=== PATIENT | male | born 1950 ===

== ENCOUNTER 2018-06-04 06:25 | Day surgery (SDC) | payer MEDICARE ==
[2018-04-16 13:34] VITALS: BMI 27.3
--- NOTE | 2018-06-02 03:42 | HP ---
Copied To: Tom Clemens MD Attending MD: Tom Clemens MD REASON FOR ADMISSION: Left heart cath, possible angioplasty because of abnormal stress test. BRIEF CLINICAL HISTORY: This is a 68-year-old male with past medical history significant for coronary artery disease, [place], status post PTCA 2003, hypertension, history of coronary artery bypass surgery 2002, hypertension, hyperlipidemia, history of PTCA of [place] RCA with brachytherapy as grafted with occluded immediate postop who had recently abnormal stress test. The patient is scheduled for elective cardiac cath, possible angioplasty. PAST MEDICAL HISTORY: Significant for hypertension, hyperlipidemia, coronary artery disease, history of coronary artery bypass surgery 2002, three-vessel bypass GARZA to LAD, obtuse marginal saphenous graft to RCA, immediate postop closed occluded venous graft to the RCA. Then, the patient had a PTCA in 2003 of [place] RCA with brachytherapy. Then, the patient has a cardiac catheterization in 2006. At that time, SVG to RCA was patent. RECENT CARDIAC WORKUP: The patient's last cardiac catheterization dated 08/29/2014 was done that shows [place] triple-vessel disease as right side was dominant, left main 40-50% stenosis, LAD has 70% proximal stenosis, which gives collateral circumflex without significant disease, but obtuse marginal was 100% occluded, right coronary artery 100% occluded. Graft GARZA to LAD was patent, SVG to obtuse marginal 1 was patent. SVG to RCA occluded immediate postop and [place] RCA was occluded on 08/29/2014. Medical treatment recommended. At that time, ejection fraction was 45%, EDP was 12. When compared from the previous cath of 2006, the cath from 2012 was similar except occluded RCA, which was patent to the previous cath. The patient had a stress test done dated 04/16/2018 that showed abnormal myocardial perfusion study, slightly reversible in the edge of apical and inferior defect suggestive of periinfarct ischemia, ejection fraction 38% in comparison to the last stress test dated 08/25/2016 the defect appear large and slightly reversible at the edge of the defect. The patient had echocardiography 04/16/2018 that showed normal LV ejection fraction 35%, moderate global hypokinesis, trace aortic regurgitation, mild mitral regurgitation, mild tricuspid regurgitation, RV systolic pressure of 40. CURRENT MEDICATIONS: The patient is taking Crestor 20 mg daily, irbesartan 150 mg daily, aspirin 325 mg daily, nitroglycerin 0.5 p.r.n. and carvedilol 25 p.o. b.i.d. ALLERGIES: NO KNOWN DRUG ALLERGIES. REVIEW OF SYSTEMS: As per HPI. PHYSICAL EXAMINATION VITAL SIGNS: Height of the patient 5 feet 8 inches, weight of the patient 180 pounds, body mass index 27.4 kg/m2. Rest of the examination as follows: Temperature afebrile, heart rate 68, blood pressure 136/98. HEENT: PERRLA. Extraocular muscles intact. NECK: Supple. No carotid bruits or thyromegaly. CHEST: Clear to auscultation. HEART: S1, S2 regular. ABDOMEN: Soft. EXTREMITIES: Clubbing and cyanosis negative. LABORATORY DATA: Blood workup pending. IMPRESSION: A 68-year-old male with past medical history significant for very extensive coronary artery disease, status post coronary artery bypass graft 2002, three vessels, left internal mammary artery to left anterior descending, obtuse marginal saphenous graft to right coronary artery, then right coronary artery immediate postop occluded. The patient had a brachytherapy in 2003 of [place] right coronary artery as saphenous vein graft to right coronary artery occluded. Then, the patient had a cath in 2006 that at that time showed patent left internal mammary artery to left anterior descending, patent saphenous graft to circumflex and patent right coronary artery with brachytherapy. Then, the patient has a repeat catheterization on 08/29/2014. At that time, showed patent left internal mammary artery to left anterior descending, patent saphenous vein graft to obtuse marginal 1, [place] triple vessel disease, occluded right coronary artery. Medical treatment recommended. Now, the patient has abnormal stress test. RECOMMENDATIONS: We will do cardiac catheterization. Further recommendation after the cardiac catheterization. Risks, benefits and alternatives discussed with the patient. The patient agreed. We will proceed for cardiac catheterization. Thank you, Dr. Kennedy, for providing us the opportunity in taking care of the patient, Aftab Sellers. Tom Clemens MD
[2018-06-04 07:12] VITALS: RESP 18; O2SAT 97
[2018-06-04] MEDS ORDERED: Lidocaine 2% Inj (20ml) ONE (07:16)
[2018-06-04] MEDS ORDERED: Phenylephrine 10 mg/ml Inj ONE (07:16)
[2018-06-04] MEDS ORDERED: Verapamil 0 ML ONE (07:16)
[2018-06-04] MEDS ORDERED: Iohexol 350mgl/ml 50 ML ONE (07:17)
[2018-06-04] MEDS ORDERED: Iodixanol 320 MG/ML 200 ML BOTTLE IV ONE (07:17)
[2018-06-04] MEDS ORDERED: Nitroglycerin 50mg in D5W 0 MG/0 ML BOTTLE IV ONE (07:17)
[2018-06-04] MEDS ORDERED: Iodixanol 320 MG/ML 100 ML BOTTLE IV ONE (07:17)
[2018-06-04 07:23] LABS: BASO # 0.03 K/mm3 (0.0-2.0); BASO % 0.3 % (0.0-3.0); EOS # 0.2 (0.0-0.7); GRAN # 7.05 (1.4-6.5); GRAN % 65.5 % (50.0-68.0); HEMOGLOBIN 14.2 g/dL (14.0-18.0); LYMPH # 2.6 (1.2-3.4); LYMPH % 24.1 % (22.0-35.0); MEAN CELL VOLUME 85.2 fl (80.0-105.0); MEAN CORPUSCULAR HEMOGLOBIN 28.5 pg (25.0-35.0); MEAN CORPUSCULAR HGB CONC 33.4 g/dl (31.0-37.0); MEAN PLATELET VOLUME 10.7 fl (7.0-11.0); MONO # 0.9 (0.1-0.6); MONO % 8.1 % (1.0-6.0); RBC 4.99 10^6/uL (3.5-6.1); WHITE BLOOD COUNT 10.8 10^3/ul (4.5-11.0)
[2018-06-04 07:31] LABS: INR 1.08; PROTHROMBIN TIME 12.4 SECONDS (9.4-12.5)
[2018-06-04 07:33] LABS: BLOOD UREA NITROGEN 20 mg/dL (7-21); CALCIUM 9.1 mg/dL (8.4-10.5); GFR AFRICAN-AMERICAN > 60; GFR NON-AFRICAN AMERICAN > 60; HDL CHOLESTEROL 41 mg/dL (29-60); PARTIAL THROMBOPLASTIN TIME 29.9 Seconds (25.1-36.5)
[2018-06-04 07:43] LABS: LDL CHOLESTEROL 129 mg/dL (0-129)
[2018-06-04] MEDS ORDERED: Midazolam 2 MG/2 ML VIAL ONE (08:05)
[2018-06-04] MEDS ORDERED: Eptifibatide 20 mg/10mL Inj IVP ONE (08:25)
[2018-06-04] MEDS ORDERED: Sodium Chloride 0.9% 1,000 ML IV SCH (09:00)
--- NOTE | 2018-06-04 09:32 | CPOSTOP ---
Copied To: Tom Clemens MD Attending MD: Tom Clemens MD DATE: 06/04/2018 CARDIOVASCULAR LAB POSTPROCEDURE NOTE DICTATING PHYSICIAN: Tom Clemens MD CIGARETTE MACHINE FILLER: Cecilia roof technician. TYPE OF ANESTHESIA: Moderate conscious sedation (total 2 mg of Versed and 100 of fentanyl given, periodically started 1 mg of Versed and 50 of fentanyl.) PRE-PROCEDURE DIAGNOSES: Unstable angina, chest pain, coronary artery disease, coronary artery bypass graft. PROCEDURES PERFORMED: Left heart catheterization, left internal mammary artery injection, saphenous vein graft injection, percutaneous transluminal coronary angioplasty of circumflex. FINDINGS: Triple vessel disease, coronary artery bypass graft. FINAL DIAGNOSIS: Critical circumflex disease. POST PROCEDURE CONDITION: Stable. VASCULAR ACCESS SITE: Right femoral groin. CLOSURE DEVICE: Angio-Seal. RADIATION DOSE: 9835.2 milligray unit. TOTAL FLUORO TIME: 7.2 minutes. Tom Clemens MD
[2018-06-04 11:49] VITALS: TEMP 98.1
[2018-06-04 12:47] LABS: BASO # 0.03 K/mm3 (0.0-2.0); BASO % 0.3 % (0.0-3.0); EOS # 0.2 (0.0-0.7); EOS % 1.4 % (1.5-5.0); GRAN # 6.84 (1.4-6.5); HEMOGLOBIN 13.2 g/dL (14.0-18.0); LYMPH # 2.7 (1.2-3.4); LYMPH % 25.3 % (22.0-35.0); MEAN CELL VOLUME 84.9 fl (80.0-105.0); MEAN CORPUSCULAR HEMOGLOBIN 27.7 pg (25.0-35.0); MEAN CORPUSCULAR HGB CONC 32.7 g/dl (31.0-37.0); MEAN PLATELET VOLUME 10.4 fl (7.0-11.0); MONO # 0.8 (0.1-0.6); RBC 4.76 10^6/uL (3.5-6.1); RED CELL DISTRIBUTION WIDTH 14.6 % (11.5-14.5); WHITE BLOOD COUNT 10.5 10^3/ul (4.5-11.0)
[2018-06-04 12:56] LABS: BLOOD UREA NITROGEN 16 mg/dL (7-21); CALCIUM 8.5 mg/dL (8.4-10.5); GFR AFRICAN-AMERICAN > 60; GFR NON-AFRICAN AMERICAN > 60
[2018-06-04 17:15] VITALS: BP 152/73; PULSE 76
--- NOTE | 2018-06-04 18:55 | CARD ---
APPROVED REPORT Date of service: 06/04/2018 Procedure(s) performed: Left Heart Catheterization GARZA Angiogram SVG Angiogram PTCA with Stenting of Proximal Cx with DESTINEY HISTORY The patient is a 68 year-old male with a history of : previous MT (> 7 days), previous diagnostic cath, tobacco history() : The patient is a former smoker , previous PCI (The PCI date was 10/30/2003), hypertension , previous CABG (The CABG date was 10/30/2002), dyslipidemia . INDICATION The indication(s) include : positive stress test, Apical and inferior reversible Ischemia. CASE TECHNIQUE The patient was brought electively to the Cardiac Catheterization Laboratory in a fasting state and was prepped and draped in a sterile manner. The right femoral groin was infiltrated with 2% Lidocaine subcutaneous anesthesia. A 6 Fr x 11 cm Lurdse sheath was inserted into the right femoral artery without difficulty. Coronary angiography was performed using coronary diagnostic catheters. The left coronary system was accessed and visualized with a Diagnostic,5F JL 4 CATH DXT 100 CM catheter. The right coronary system was accessed and visualized with a Diagnostic ,5F JR 4 CATH DXT 100 CM catheter. The left ventricle was accessed and visualized with a 5 Fr Pigtail 145 (Angled) catheter. Left ventricular/Aortic Valve gradient assessed on pullback. Left ventriculogram was performed in GASPAR projection. Closure device was deployed with a 6 Fr Angio-Seal without any complications. The patient tolerated the procedure well and there were no complications associated with the procedure. Vessel Analysis The patient's coronary anatomy is right dominant. The left main coronary artery is a medium size vessel with diffuse calcification noted throughout this vessel and without significant stenosis. There is a 20-30% stenosis in the ostial segment. The left main bifurcates to the left anterior descending and circumflex. The left anterior descending artery is a medium size vessel with diffuse calcification noted throughout this vessel and with significant stenosis. There is a 80% stenosis in the mid segment. The first diagonal branch is a medium size vessel with diffuse calcification noted throughout this vessel and without significant stenosis. The circumflex artery is a medium size vessel with diffuse calcification noted throughout this vessel and with significant stenosis. There is a 95% stenosis in the proximal segment. The first obtuse marginal branch is a small size vessel with diffuse calcification noted throughout this vessel and without significant stenosis. The right coronary artery is a medium size vessel totally occluded proximally. There is a 100% stenosis . The left internal mammary artery to the mid left anterior descending artery segment is patent . The saphenous vein graft to the lateral first obtuse marginal branch segment is patent . The saphenous vein graft to the distal right coronary artery was occluded on previou cath after CABG, and not canulated at this time. . Left Ventricle The left ventricle is enlarged in size with moderately decreased contractility. Ischemic cardiomyopathy. The left ventricular ejection fraction is estimated to be 35-40%. The left ventricular end diastolic pressure is 15-18 mmHg. There was no gradient across the aortic valve upon pullback. PCI Technique Lesion Anticoagulation was achieved with Heparin and Bollus Integrelin. Percutaneous coronary intervention was performed on the proximal circumflex artery segment. The lesion stenosis prior to intervention was 95% with DEX 1 flow. A 6 Fr XB 3.5 Guide Catheter was used to engage the ostium. BALLOON DILATION A Balloon catheter 2.0 x 10 mm Sprinter RX was inserted and inflated up to 8.00atm for 12seconds. STENT DEPLOYMENT A drug-eluting stent STENT RESOLUTE LATRICE 2.5 X15 was inserted and inflated up to 12.00atm for 13seconds. Final angiography reveals 0 % stenosis with DEX 3 flow. Conclusion Robinson triple vessel DIz. Occluded SVG to RCA in the Past ( just after CABG) Occluded RCA in the Past , s/p stent and brachytherapy. Patent GARZA to Mid to Distal lAD Patent SVG to OM1 decreased LV FX. EF-35-40%, EDP-15-18 mmof Hg Successful TCA with DESTINEY of Proximal CX 95% to 0. Recommendations Cardiac Rehabilitation ReferralDaily ASA with Plavix for at least one year Aggressive Medical Therapy Weight Loss Reduction Program Add statin , Lipitor 40 mg po daily. Add low dose of MARYANNE if BP is tolerated. F/u LV EF in 3-6 months to assess need for AICD. cc Juancarlos; Brent/ Jaiden
--- NOTE | 2018-06-04 22:34 | CARD ---
APPROVED REPORT Date of service: 06/04/2018 EKG Measurement Heart [id number] <Conclusion> Normal sinus rhythm Minimal voltage criteria for LVH, may be normal variant Inferior infarct, age undetermined Abnormal ECG
--- NOTE | 2018-06-04 22:40 | CARD ---
APPROVED REPORT Date of service: 06/04/2018 EKG Measurement Heart [id number] ID [id number] <Conclusion> Normal sinus rhythm Moderate voltage criteria for LVH, may be normal variant Inferior infarct, age undetermined Possible Anterior infarct, age undetermined Abnormal ECG
== END 2018-06-04 22:44 | disposition home or self-care (01) ==
LOC: CATH 06:25 → 2RSO 09:02 → CATH 22:44
PROVIDERS: ATTEND Internal Medicine Cardiovascular Disease
DX: I25.110 Atherosclerotic heart disease of native coronary artery with unstable angina pectoris (principal); I25.810 Atherosclerosis of coronary artery bypass graft(s) without angina pectoris; R94.39 Abnormal result of other cardiovascular function study; I10 Essential (primary) hypertension; E78.5 Hyperlipidemia, unspecified; I25.2 Old myocardial infarction; I25.5 Ischemic cardiomyopathy; Z87.891 Personal history of nicotine dependence
CPT/HCPCS: 36415; 80048; 80061; 85025; 85175; 85610; 85730; 86850; 86900; 93005; 93459; 99152; 99153; C1725; C1760; C1769 ×2; C1874; C1887; C2629; J1327; J1644 ×2; J2250; J3010; J7030; J7040; Q9966; Q9967

== ENCOUNTER 2018-07-27 11:04 | Day surgery (SDC) | payer MEDICARE ==
[2018-04-16 13:34] VITALS: BMI 27.3
[2018-07-27 12:18] VITALS: O2SAT 99
[2018-07-27] MEDS ORDERED: Propofol 10 mg/ml Inj (20 ML) ONE (13:09)
[2018-07-27] MEDS ORDERED: Phenylephrine 10 mg/ml Inj ONE (13:46)
[2018-07-27] MEDS ORDERED: Sodium Chloride 0.9% 1,000 ML IV SCH (14:00)
[2018-07-27 14:20] VITALS: RESP 16
[2018-07-27 15:19] VITALS: BP 168/89; PULSE 67; TEMP 98.6
== END 2018-07-27 15:23 | disposition home or self-care (01) ==
LOC: ENDO 11:04
PROVIDERS: ATTEND Internal Medicine Gastroenterology
DX: K63.5 Polyp of colon (principal); K57.30 Diverticulosis of large intestine without perforation or abscess without bleeding; K64.8 Other hemorrhoids; K59.09 Other constipation
CPT/HCPCS: 45378; J2370; J2704; J7030; J7040

== ENCOUNTER 2018-12-22 08:34 | Outpatient (CLI) | payer MEDICARE | END 2018-12-22 08:35 | disposition home or self-care (01) | LOC: OP 08:34 | DX: I25.810 Atherosclerosis of coronary artery bypass graft(s) without angina pectoris (principal) ==

== ENCOUNTER 2019-02-10 08:40 | Observation (INO) | payer MEDICARE, OTHER ==
--- NOTE | 2019-02-10 09:02 | ED PDOC ---
Arrival/HPI - General Chief Complaint: Chest Pain Time Seen by Provider: 02/10/19 08:49 Historian: Patient - History of Present Illness Narrative History of Present Illness (Text): 02/10/19 09:01 Patient is a 69yo M with PMH CAD s/p triple bypass in 2002 presenting to ED with chest pain. He reports sharp chest pain in the L side that began yesterday morning with associated shortness of breath, cold sweats, and dizziness. He took nitro at home which resolved the symptoms. This morning upon waking up he again felt chest pain so he reports taking nitro which alleviated the pain. Patient still admits to cold sweats, dizziness, and numbness on the L side of the chest at this time. He reports history of intermittent mild chest pain, but not to this severity. He reports the shortness of breath is exacerbated by walking up stairs. He complains of abdominal fullness. He reports taking his medications daily as prescribed. He denies loss of consciousness, headache, blurry vision, nausea, vomiting. Time/Duration: 24 hours Symptom Onset: Sudden Symptom Course: Improving Quality: Stabbing Activities at Onset: Rest Past Medical History - Tetanus Immunization Tetanus Immunization: Unknown - Past Medical History Past Medical History: No Previous - Cardiac Hx NC: Yes Hx Hypertension: Yes - Pulmonary Hx Respiratory Disorders: No - Neurological Hx Paralysis: No - HEENT Hx HEENT Disorder: Yes (eyeglasses) - Renal Hx Renal Disorder: No - Endocrine/Metabolic Hx Endocrine Disorders: No - Hematological/Oncological Hx Blood Transfusions: No Hx Blood Transfusion Reaction: No - Integumentary Hx Dermatological Disorder: No - Musculoskeletal/Rheumatological Hx Musculoskeletal Disorders: No - Gastrointestinal Hx Gastrointestinal Disorders: Yes (GI bleed) - Genitourinary/Gynecological Hx Prostate Problems: Yes (Prostate CA) Hx Urinary Tract Infection: Yes - Psychiatric Hx Emotional Abuse: No Hx Physical Abuse: No Hx Substance Use: No - Surgical History Hx Coronary Artery Bypass Graft: Yes Hx Coronary Stent: Yes Hx Open Heart Surgery: Yes - Anesthesia Hx Anesthesia Reactions: No Hx Malignant Hyperthermia: No - Suicidal Assessment Feels Threatened In Home Enviroment: No Family/Social History Family/Social History: No Known Family HX Smoking Status: Former Smoker Hx Alcohol Use: Yes (ONCE IN AWHILE) Frequency of alcohol use: Socially Hx Substance Use: No Hx Substance Use Treatment: No Allergies/Home Meds Allergies/Adverse Reactions: Allergies clopidogrel [From Plavix] Allergy (Verified 02/10/19 08:48) RASH Home Medications: Home Meds Medication Instructions Recorded Confirmed Rosuvastatin Calcium [Crestor] 10 mg PO DAILY 07/24/18 02/10/19 Ticagrelor [Brilinta] 90 mg PO BID 07/24/18 02/10/19 Aspirin [Ecotrin] 81 mg PO DAILY 02/10/19 02/10/19 Irbesartan 150 mg PO DAILY 02/10/19 02/10/19 Review of Systems - Review of Systems Constitutional: Normal. absent: Fatigue, Fevers Eyes: Normal. absent: Vision Changes ENT: Normal Respiratory: SOB Cardiovascular: Chest Pain. absent: Syncope Gastrointestinal: Other (bloating). absent: Abdominal Pain, Diarrhea, Nausea, Vomiting Genitourinary Male: Normal Musculoskeletal: Other (L arm pain) Skin: Normal Neurological: Dizziness, Other (numbness). absent: Headache, Focal Weakness, Speech Changes, Facial Droop Endocrine: Diaphoresis Hemo/Lymphatic: Normal Psychiatric: Normal Physical Exam Vital Signs Reviewed: Yes Vital Signs Temp Pulse Resp BP Pulse Ox 02/10/19 08:41 97.8 F 74 18 172/85 H 98 Temperature: Afebrile Blood Pressure: Hypertensive Pulse: Regular Respiratory Rate: Normal Appearance: Positive for: Well-Appearing, Non-Toxic, Comfortable Pain Distress: None Mental Status: Positive for: Alert and Oriented X 3 - Systems Exam Head: Present: Atraumatic, Normocephalic Pupils: Present: PERRL Extroacular Muscles: Present: EOMI Conjunctiva: Present: Normal Mouth: Present: Moist Mucous Membranes Neck: Present: Normal Range of Motion Respiratory/Chest: Present: Clear to Auscultation, Good Air Exchange. No: Respiratory Distress, Accessory Muscle Use, Wheezes, Rales, Rhonchi Cardiovascular: Present: Regular Rate and Rhythm, Normal S1, S2. No: Murmurs, Rub, Gallop Abdomen: Present: Normal Bowel Sounds. No: Tenderness, Distention, Peritoneal Signs Upper Extremity: Present: Normal Inspection. No: Cyanosis, Edema Lower Extremity: Present: Normal Inspection. No: Edema Neurological: Present: GCS=15, CN II-XII Intact, Speech Normal Skin: Present: Normal Color. No: Dry, Rashes Psychiatric: Present: Alert, Oriented x 3, Normal Insight, Normal Concentration Medical Decision Making ED Course and Treatment: 02/10/19 10:31 Patient states he feels better however still complains of dizziness. Troponin neg x1. EKG reviewed, no ST elevations. Patient has heart score of 5 correlating with increased risk for adverse cardiac event. - RAD Interpretation Radiology Orders: 02/10/19 08:58 CHEST PORTABLE [RAD] Stat Disposition/Present on Arrival - Present on Arrival Any Indicators Present on Arrival: No History of DVT/PE: No History of Uncontrolled Diabetes: No Urinary Catheter: No History of Decub. Ulcer: No History Surgical Site Infection Following: None - Disposition Have Diagnosis and Disposition been Completed?: Yes Diagnosis: Chest pain Disposition: HOSPITALIZED Disposition Time: 09:00 Patient Problems: Current Active Problems Problem Status Onset Chest pain Acute Condition: STABLE
[2019-02-10 09:31] LABS: BASO # 0.03 K/mm3 (0.0-2.0); BASO % 0.3 % (0.0-3.0); EOS # 0.3 (0.0-0.7); EOS % 2.7 % (1.5-5.0); LYMPH # 2.5 (1.2-3.4); MEAN CELL VOLUME 89.1 fl (80.0-105.0); MEAN CORPUSCULAR HEMOGLOBIN 28.4 pg (25.0-35.0); MEAN CORPUSCULAR HGB CONC 31.9 g/dl (31.0-37.0); MEAN PLATELET VOLUME 10.3 fl (7.0-11.0); MONO # 0.9 (0.1-0.6); MONO % 7.8 % (1.0-6.0); RBC 4.58 10^6/uL (3.5-6.1); RED CELL DISTRIBUTION WIDTH 14.8 % (11.5-14.5); WHITE BLOOD COUNT 11.7 10^3/uL (4.5-11.0)
[2019-02-10 09:48] LABS: INR 1.04; PARTIAL THROMBOPLASTIN TIME 32.1 Seconds (26.9-38.3); PROTHROMBIN TIME 11.8 SECONDS (9.4-12.5)
[2019-02-10 09:56] LABS: ALB/GLOB RATIO 1.2 (1.1-1.8); ALBUMIN 3.7 g/dL (3.0-4.8); ALT/SGPT 17 U/L (7-56); AST/SGOT 29 U/L (17-59); BLOOD UREA NITROGEN 20 mg/dL (7-21); CALCIUM 8.6 mg/dL (8.4-10.5); GFR NON-AFRICAN AMERICAN > 60
[2019-02-10 10:07] LABS: B-TYPE NATRIURETIC PEPTIDE 219 pg/mL (0-450); TROPONIN I < 0.01 ng/mL
--- NOTE | 2019-02-10 11:39 | CP.PCM.HP ---
<Dottie Nuñez - Last Filed: 02/10/19 11:54> History of Present Illness - History of Present Illness History of Present Illness: H&P for Hospitalist Service 69 yo male with PMH of CAD s/p triple bypass in 2002, HTN, prostate cancer, former smoker presented to ED with chest pain. Patient reports sharp chest pain on the left side that began yesterday and become noticeably worse in the after noon. It was associated with shortness of breath, cold sweats, and dizziness. He denies any activity at that time. He took nitro which resolved the symptoms. However this morning the chest pain returned, he took his AM dose of asa. In the ED patient admitted to cold sweats, dizziness, and numbness on the L side of the chest at that time, however symptoms resolved. He reports history of intermitten t mild chest pain and SOB, but not to this severity. He report complaince with his medication and follow up with pmd, Dr. Kennedy regularly. He complains of constipation but reports recent BM. He denies loss of consciousness, headache, blurry vision, nausea, vomiting, abd pain, urinary symptoms. remainder of 12 point ROS negative except as stated. PMD: Dr. Kennedy head charger Dr Hwang PMH: PSH: CABG, cardiac cath with stents, cholecystectomy social history: former heavy smoker quit in 2002, social alcohol use, denies illicit drug use family history: HTN allergy: clopidogrel- rash Present on Admission - Present on Admission Any Indicators Present on Admission: No Review of Systems - Review of Systems All systems: reviewed and no additional remarkable complaints except - Constitutional Constitutional: absent: Chills, Fatigue, Fever, Frequent Falls, Headache, Night Sweats, Weakness - EENT Eyes: absent: Blurred Vision, Change in Vision, Dry Eye, Exophthalmos, Photophobia Nose/Mouth/Throat: absent: Nasal Congestion, Nasal Trauma, Nose Pain, Sinus Pain, Bleeding Gums, Dry Mouth, Dysphagia, Lip Swelling - Cardiovascular Cardiovascular: Chest Pain, Chest Pain at Rest, Diaphoresis, Dyspnea, Lightheadedness. absent: Claudication, Irregular Heart Rhythm, Palpitations, Rapid Heart Rate, Syncope - Respiratory Respiratory: Dyspnea. absent: Cough, Hemoptysis, Wheezing, Stridor, Pain on Inspiration, Chest Congestion - Gastrointestinal Gastrointestinal: Bloating, Constipation. absent: Abdominal Pain, Belching, Coffee Ground Emesis, Cramping, Diarrhea, Dyspepsia, Dysphagia, Nausea, Vomiting - Genitourinary Genitourinary: absent: Difficulty Urinating, Dysuria, Hematuria, Pyuria - Musculoskeletal Musculoskeletal: absent: Arthralgias, Back Pain, Joint Swelling, Muscle Weakness, Numbness, Stiffness - Integumentary Integumentary: absent: Pruritus, Rash, Skin Ulcer, Sores, Unusual Bruising - Neurological Neurological: Dizziness. absent: Confusion, Numbness, Focal Weakness, Heada ches, Syncope, Tingling, Weakness - Hematologic/Lymphatic Hematologic: absent: Easy Bleeding, Easy Bruising Past Patient History - Tetanus Immunizations Tetanus Immunization: Unknown - Past Social History Smoking Status: Former Smoker - CARDIAC Hx Heart Attack: Yes Hx Hypertension: Yes - PULMONARY Hx Respiratory Disorders: No - NEUROLOGICAL Hx Paralysis: No - HEENT Hx HEENT Problems: Yes (eyeglasses) - RENAL Hx Chronic Kidney Disease: No - ENDOCRINE/METABOLIC Hx Endocrine Disorders: No - HEMATOLOGICAL/ONCOLOGICAL Hx Blood Transfusions: No Hx Blood Transfusion Reaction: No - INTEGUMENTARY Hx Dermatological Problems: No - MUSCULOSKELETAL/RHEUMATOLOGICAL Hx Musculoskeletal Disorders: No - GASTROINTESTINAL Hx Gastrointestinal Disorders: Yes (GI bleed) - GENITOURINARY/GYNECOLOGICAL Hx Prostate Problems: Yes (Prostate CA) Hx Urinary Tract Infection: Yes - PSYCHIATRIC Hx Emotional Abuse: No Hx Physical Abuse: No Hx Substance Use: No - SURGICAL HISTORY Hx Coronary Artery Bypass Graft: Yes Hx Coronary Stent: Yes Hx Open Heart Surgery: Yes - ANESTHESIA Hx Anesthesia Reactions: No Hx Malignant Hyperthermia: No Meds Allergies/Adverse Reactions: Allergies Allergy/AdvReac Type Severity Reaction Status Date / Time clopidogrel [From Plavix] Allergy RASH Verified 02/10/19 08:48 Physical Exam - Constitutional Appears: No Acute Distress - Head Exam Head Exam: ATRAUMATIC, NORMAL INSPECTION, NORMOCEPHALIC - Eye Exam Eye Exam: EOMI, Normal appearance, PERRL. absent: Conjunctival injection, Periorbital swelling, Scleral icterus - ENT Exam ENT Exam: Mucous Membranes Moist, Normal Oropharynx - Respiratory Exam Respiratory Exam: Clear to Auscultation Bilateral, NORMAL BREATHING PATTERN. absent: Chest Wall Tenderness, Decreased Breath Sounds, Rales, Rhonchi, Wheezes, Respiratory Distress - Cardiovascular Exam Cardiovascular Exam: REGULAR RHYTHM, +S1, +S2. absent: Bradycardia, Tachycardia, Diastolic murmur, Systolic Murmur - GI/Abdominal Exam GI & Abdominal Exam: Normal Bowel Sounds, Soft. absent: Diminished Bowel Sounds, Firm, Guarding, Hernia, Rigid, Tenderness - Extremities Exam Extremities exam: Positive for: full ROM, normal inspection. Negative for: calf tenderness, pedal edema, tenderness - Neurological Exam Neurological exam: Alert, CN II-XII Intact, Oriented x3, Reflexes Normal - Psychiatric Exam Psychiatric exam: Normal Affect, Normal Mood - Skin Skin Exam: Dry, Intact, Normal Color, Warm Results - Vital Signs Recent Vital Signs: Last Vital Signs Temp 97.8 F 02/10/19 08:41 Pulse 67 02/10/19 09:15 Resp 18 02/10/19 08:41 BP 172/85 H 02/10/19 09:15 Pulse Ox 98 02/10/19 08:41 - Labs Result Diagrams: 02/10/19 09:11 02/10/19 09:11 Labs: Laboratory Results - last 24 hr 02/10/19 02/10/19 02/10/19 09:11 09:11 09:11 WBC 11.7 H RBC 4.58 Hgb 13.0 L Hct 40.8 L MCV 89.1 D MCH 28.4 MCHC 31.9 RDW 14.8 H Plt Count 243 MPV 10.3 Neut % (Auto) 68.2 H Lymph % (Auto) 21.0 L Hand % (Auto) 7.8 H Eos % (Auto) 2.7 Baso % (Auto) 0.3 Lymph # (Auto) 2.5 Hand # (Auto) 0.9 H Eos # (Auto) 0.3 Baso # (Auto) 0.03 Absolute Neuts (auto) 7.99 H PT 11.8 INR 1.04 APTT 32.1 D-Dimer, Quantitative Sodium 139 Potassium 4.1 Chloride 105 Carbon Dioxide 28 Anion Gap 10 BUN 20 Creatinine 0.9 Est GFR ( Amer) > 60 Est GFR (Non-Af Amer) > 60 Random Glucose 116 H Calcium 8.6 Phosphorus 3.0 Magnesium 2.1 Total Bilirubin 0.2 AST 29 ALT 17 Alkaline Phosphatase 81 Troponin I < 0.01 D NT-Pro-B Natriuret Pep 219 Total Protein 6.9 Albumin 3.7 Globulin 3.2 Albumin/Globulin Ratio 1.2 02/10/19 09:11 WBC RBC Hgb Hct MCV MCH MCHC RDW Plt Count MPV Neut % (Auto) Lymph % (Auto) Hand % (Auto) Eos % (Auto) Baso % (Auto) Lymph # (Auto) Hand # (Auto) Eos # (Auto) Baso # (Auto) Absolute Neuts (auto) PT INR APTT D-Dimer, Quantitative 216 Sodium Potassium Chloride Carbon Dioxide Anion Gap BUN Creatinine Est GFR ( Amer) Est GFR (Non-Af Amer) Random Glucose Calcium Phosphorus Magnesium Total Bilirubin AST ALT Alkaline Phosphatase Troponin I NT-Pro-B Natriuret Pep Total Protein Albumin Globulin Albumin/Globulin Ratio Assessment & Plan - Assessment and Plan (Free Text) Assessment: 69 yo male with PMH of CAD s/p triple bypass in 2002, HTN, prostate cancer, former smoker presented to ED with chest pain associated with dizziness, cold sweats. Plan: Chest pain r/o ACS - EKG in ED was normal sinus, no ST changes - first trop was negative, will continue to trend - Echo in march 2018 showed EF of 36% with global hypokinesis - cardiac cath on 06/04/18 showed EF of 35-40%, with DESTINEY placed in the proximal cx - Follow up CTA - continue home asa and brilinta - continue home statin therapy - continue home coreg and cindi inhibitor - will consult Dr Hwang for cardiolgy HTN - elevated in ED - will resume home medications coreg and losartan - will continue to monitor GI ppx- Pepcid DV ppx- scds case discussed with Dr. Koenig <Sukhi Koenig - Last Filed: 02/10/19 12:47> Results - Vital Signs Recent Vital Signs: Last Vital Signs Temp 97.8 F 02/10/19 08:41 Pulse 78 02/10/19 12:28 Resp 17 02/10/19 12:02 BP 191/97 H 02/10/19 12:29 Pulse Ox 100 02/10/19 12:02 - Labs Result Diagrams: 02/10/19 09:11 02/10/19 09:11 Labs: Laboratory Results - last 24 hr 02/10/19 02/10/19 02/10/19 09:11 09:11 09:11 WBC 11.7 H RBC 4.58 Hgb 13.0 L Hct 40.8 L MCV 89.1 D MCH 28.4 MCHC 31.9 RDW 14.8 H Plt Count 243 MPV 10.3 Neut % (Auto) 68.2 H Lymph % (Auto) 21.0 L Hand % (Auto) 7.8 H Eos % (Auto) 2.7 Baso % (Auto) 0.3 Lymph # (Auto) 2.5 Hand # (Auto) 0.9 H Eos # (Auto) 0.3 Baso # (Auto) 0.03 Absolute Neuts (auto) 7.99 H PT 11.8 INR 1.04 APTT 32.1 D-Dimer, Quantitative Sodium 139 Potassium 4.1 Chloride 105 Carbon Dioxide 28 Anion Gap 10 BUN 20 Creatinine 0.9 Est GFR ( Amer) > 60 Est GFR (Non-Af Amer) > 60 Random Glucose 116 H Calcium 8.6 Phosphorus 3.0 Magnesium 2.1 Total Bilirubin 0.2 AST 29 ALT 17 Alkaline Phosphatase 81 Troponin I < 0.01 D NT-Pro-B Natriuret Pep 219 Total Protein 6.9 Albumin 3.7 Globulin 3.2 Albumin/Globulin Ratio 1.2 02/10/19 09:11 WBC RBC Hgb Hct MCV MCH MCHC RDW Plt Count MPV Neut % (Auto) Lymph % (Auto) Hand % (Auto) Eos % (Auto) Baso % (Auto) Lymph # (Auto) Hand # (Auto) Eos # (Auto) Baso # (Auto) Absolute Neuts (auto) PT INR APTT D-Dimer, Quantitative 216 Sodium Potassium Chloride Carbon Dioxide Anion Gap BUN Creatinine Est GFR ( Amer) Est GFR (Non-Af Amer) Random Glucose Calcium Phosphorus Magnesium Total Bilirubin AST ALT Alkaline Phosphatase Troponin I NT-Pro-B Natriuret Pep Total Protein Albumin Globulin Albumin/Globulin Ratio Attending/Attestation - Attestation I have personally seen and examined this patient.: Yes I have fully participated in the care of the patient.: Yes I have reviewed all pertinent clinical information: Yes Notes (Text): 02/10/19 12:44 69 year old male with past medical history of CAD s/p CABG, hypertension and prior smoking history presents with complaint of chest pain. Will admit to telemetry unit. Serial cardiac enzymes are ordered to rule out ACS. Cardiology evaluation is requested. Continue with home medications including aspirin, brilinta, statin, coreg and ARB. Will follow up on CXR and CT chest study as ordered in ER. Sukhi Koenig MD Hospitalist.
[2019-02-10] MEDS ORDERED: IRBESARTAN 150 MG PO SCH (11:45)
--- NOTE | 2019-02-10 12:44 | CT ---
Date of service: 02/10/2019 PROCEDURE: CT Chest with contrast (Pulmonary Angiogram) HISTORY: Chest pain COMPARISON: None available. TECHNIQUE: Axial computed tomography images were obtained of the chest in the pulmonary arterial phase of enhancement. Coronal and sagittal reformatted images were created and reviewed. Intravenous contrast dose: Radiation dose: Total exam DLP = 519.49 mGy-cm. This CT exam was performed using one or more of the following dose reduction techniques: Automated exposure control, adjustment of the mA and/or kV according to patient size, and/or use of iterative reconstruction technique. FINDINGS: PULMONARY ARTERIES: The visualized pulmonary trunk, right and left main, lobar, segmental and proximal subsegmental branches of the pulmonary arteries are well opacified with no filling defects seen to suggest acute central pulmonary embolus. Pulmonary trunk measures approximately 2.3 cm. AORTA: No acute findings. No thoracic aortic aneurysm. Ascending thoracic aorta measures approximately 3.0 cm and descending thoracic aorta measures approximately 2.6 cm. Mild aortic atherosclerotic calcification or mural plaque present. LUNGS: Mild passive -dependent type atelectasis both posterior lower lung mckeon.. There is a small granuloma right lung apex. Mild chronic right apical pleural thickening and adjacent parenchymal scarring a component of which exhibits a slight elliptical shaped configuration that is likely postinflammatory however follow-up CT scan in 3 months recommended to exclude underlying aggressive lesion. Head with Minimal scarring seen in the left lingular region as well. PLEURAL SPACES: No effusion or pneumothorax. HEART: Heart size mildly enlarged. No significant pericardial effusion.. No significant pericardial effusion. LYMPH NODES: There are a few small nonspecific mediastinal lymph nodes. No significant mediastinal adenopathy. There is a small hiatal hernia. BONES, CHEST WALL: Sternotomy wires mild multilevel degenerative spondylosis of the thoracic and lower cervical spine. There are no acute compression fractures nor retropulsed fragments. OTHER FINDINGS: Mild bilateral changes of gynecomastia. Cholecystectomy. Liver exhibits normal size attenuation pattern. Tiny calcification anterior aspect left lobe liver and another inferior aspect right lobe liver; rule out prior exposure to a granulomatous disease process. IMPRESSION: No evidence of acute central pulmonary embolus. Mild cardiomegaly. Small granuloma right lung apex. There is mild right apical pleural thickening and parenchymal scarring component of which exhibits an elliptical shaped configuration. This probably represents postinflammatory sequela however CT scan in 3 months recommended to assess stability and exclude the possibility of underlying aggressive lesion
[2019-02-10 14:14] VITALS: BMI 26.4
--- NOTE | 2019-02-10 15:00 | RAD ---
Date of service: 02/10/2019 HISTORY: chest pain COMPARISON: Comparison chest dated 08/10/2016 TECHNIQUE: 1 view obtained. FINDINGS: LUNGS: No active pulmonary disease. PLEURA: No significant pleural effusion identified, no pneumothorax apparent. CARDIOVASCULAR: Mild aortic atherosclerotic calcification present. Cardiomegaly. No pulmonary vascular congestion. OSSEOUS STRUCTURES: No significant abnormalities. VISUALIZED UPPER ABDOMEN: Normal. OTHER FINDINGS: None. IMPRESSION: Cardiomegaly. No active disease.
[2019-02-10 15:22] LABS: HDL CHOLESTEROL 45 mg/dL (29-60)
[2019-02-10 15:33] LABS: LDL CHOLESTEROL 81 mg/dL (0-129)
[2019-02-10 15:34] LABS: TROPONIN I < 0.01 ng/mL
[2019-02-10] MEDS ORDERED: Non Formulary Medication (Rosuvastatin Calcium [Crestor] 10 MG) PO SCH (17:00)
--- NOTE | 2019-02-10 22:40 | CON ---
DATE OF CONSULTATION: 02/10/2019 REASON FOR CONSULTATION: Chest pain. HISTORY OF PRESENT ILLNESS: The patient is a 69-year-old male who has a history of coronary artery disease with coronary artery bypass surgery in 2001 at [facility]. The patient also underwent coronary artery stenting in 05/2018 according to the patient. He presented because of chest pain associated with shortness of breath, diaphoresis and dizziness. The patient stated that he has been compliant with his antiplatelet therapy, which included aspirin and Brilinta. At the time of my evaluation, the patient was chest pain free. SOCIAL HISTORY: Nonsmoker, nondrinker. MEDICATIONS: Brilinta 90 mg twice a day, Coreg 25 mg twice a day, Cozaar 50 mg once a day, aspirin 81 mg once a day, Lipitor 40 mg once a day, Pepcid 20 mg p.o. twice a day. REVIEW OF SYSTEMS: No nausea or vomiting. No fever or chills. The patient did have dizziness, but no syncope. PHYSICAL EXAMINATION: GENERAL: The patient is an elderly male who does not appear to be in acute distress. VITAL SIGNS: Blood pressure 173/88, heart rate 68, temperature 97.8, respirations 18. HEENT: Normocephalic. CHEST: Clear. HEART: S1 and S2, regular. EXTREMITIES: No edema. LABORATORY DATA: Hemoglobin and hematocrit are 13 and 40.8. White count 11.7 and platelet count 243,000. PT/PTT, INR and D-dimer are within normal limits. Today's SMA-7 is within normal limits except for glucose of 116. First troponin is negative. EKG revealed sinus rhythm at rate of 72, inferior infarct of indeterminate age and anterolateral infarct of indeterminate age. Most recent echo was in 03/2018, which revealed ejection fraction measured at 35%. [id number] mitral insufficiency. In 05/2019, cardiac catheterization revealed kaw triple-vessel disease, occluded saphenous vein graft to the RCA just after CABG, occluded RCA. Status post stent and brachytherapy. Patent GARZA to LAD, patent saphenous vein graft to OM1. Ejection fraction was 35-38%. At that time, the patient underwent drug-eluting stent to 95% stenosis of circumflex artery. ASSESSMENT: 1. Chest pain, rule out myocardial infarction. The patient had circumflex artery stenting in 05/2018. 2. Ischemic cardiomyopathy. 3. Guvq-os-norhwyty mitral insufficiency. 4. Diabetes mellitus. RECOMMENDATIONS: Continue current Brilinta 90 mg twice a day, Coreg 25 mg once a day, Cozaar 50 mg once a day, aspirin 81 mg once a day, Lipitor 40 mg once a day. Case will be discussed with Dr. Clemens for possible cardiac catheterization tomorrow and the patient will be kept n.p.o. for that reason. Francisco Farrell MD
--- NOTE | 2019-02-11 07:09 | CARD ---
APPROVED REPORT Date of service: 02/10/2019 EKG Measurement Heart [id number] <Conclusion> Poor data quality, interpretation may be adversely affected Sinus rhythm with premature atrial complexes Minimal voltage criteria for LVH, may be normal variant Inferior infarct, age undetermined Anterolateral infarct, age undetermined Abnormal ECG
[2019-02-11 07:10] LABS: BASO # 0.03 K/mm3 (0.0-2.0); BASO % 0.3 % (0.0-3.0); EOS # 0.4 (0.0-0.7); HEMOGLOBIN 13.8 g/dL (14.0-18.0); LYMPH # 2.8 (1.2-3.4); MEAN CELL VOLUME 89.1 fl (80.0-105.0); MEAN CORPUSCULAR HEMOGLOBIN 28.4 pg (25.0-35.0); MEAN CORPUSCULAR HGB CONC 31.9 g/dl (31.0-37.0); MEAN PLATELET VOLUME 10.8 fl (7.0-11.0); MONO # 0.8 (0.1-0.6); MONO % 6.8 % (1.0-6.0); RBC 4.86 10^6/uL (3.5-6.1); RED CELL DISTRIBUTION WIDTH 14.7 % (11.5-14.5); WHITE BLOOD COUNT 11.7 10^3/uL (4.5-11.0)
[2019-02-11 07:21] LABS: ALB/GLOB RATIO 1.2 (1.1-1.8); ALBUMIN 3.8 g/dL (3.0-4.8); ALT/SGPT 19 U/L (7-56); AST/SGOT 28 U/L (17-59); BLOOD UREA NITROGEN 16 mg/dL (7-21); CALCIUM 8.9 mg/dL (8.4-10.5); GFR NON-AFRICAN AMERICAN > 60
[2019-02-11] MEDS ORDERED: Iohexol 350mgl/ml 50 ML ONE (12:14)
[2019-02-11] MEDS ORDERED: Iodixanol 320 MG/ML 100 ML BOTTLE IV ONE (12:14)
[2019-02-11] MEDS ORDERED: Iodixanol 320 MG/ML 200 ML BOTTLE IV ONE (12:14)
[2019-02-11] MEDS ORDERED: Lidocaine PF 2% (5 ml) Inj (For Cardiac Arrhy) ONE (12:17)
[2019-02-11] MEDS ORDERED: Midazolam 2 MG/2 ML VIAL ONE (12:50)
[2019-02-11] MEDS ORDERED: Sodium Chloride 0.9% 1,000 ML IV SCH (14:15)
--- NOTE | 2019-02-11 14:54 | CP.PCM.PN ---
<Farhan Lang - Last Filed: 02/11/19 14:51> Subjective - Date & Time of Evaluation Date of Evaluation: 02/11/19 Time of Evaluation: 09:00 - Subjective Subjective: Farhan Lang PGY-1 Progress Note for Hospitalist Service Patient seen and evaluated at bedside. No acute events reported overnight. Patient to go for cardiac cath today. NPO since midnight. Patient reports fluttering of the chest but denies chest pain, palpitations, shortness of breath and blurry vision. Objective - Vital Signs/Intake and Output Vital Signs (last 24 hours): Temp Pulse Resp BP Pulse Ox 97.9 F 60 18 137/80 96 02/11/19 14:15 02/11/19 14:15 02/11/19 14:15 02/11/19 14:15 02/11/19 07:51 Intake and Output: 02/11/19 02/11/19 06:59 18:59 Intake Total 0 Balance 0 - Medications Medications: Current Medications Aspirin (Ecotrin) 81 mg PO DAILY [facility] Last Admin: 02/11/19 09:07 Dose: 81 mg Atorvastatin Calcium (Lipitor) 40 mg PO DIN [facility] [place] Last Admin: 02/10/19 17:39 Dose: 40 mg Carvedilol (Coreg) 25 mg PO BID [facility] [place] Last Admin: 02/11/19 09:07 Dose: 25 mg Digoxin (Lanoxin) 0.25 mg PO 1400 GABY Famotidine (Pepcid) 20 mg PO 1000,2200 [facility] [place] Last Admin: 02/11/19 09:08 Dose: 20 mg Furosemide (Lasix) 40 mg IV ONCE ONE Stop: 02/11/19 19:06 Furosemide (Lasix) 40 mg PO DAILY [facility] [place] Sodium Chloride (Sodium Chloride 0.9%) 1,000 mls @ 100 mls/hr IV .Q10H [facility] Stop: 02/11/19 18:00 Sacubitril/Valsartan (Entresto 24 Mg-26 Mg Tablet) 1 each PO BID [facility] [place] Spironolactone (Aldactone) 25 mg PO DAILY [facility] [place] Ticagrelor (Brilinta) 90 mg PO BID [facility] [place] Last Admin: 02/11/19 09:06 Dose: 90 mg - Labs Labs: 02/11/19 06:30 02/11/19 06:30 PT 11.8 SECONDS (9.4-12.5) 02/10/19 09:11 INR 1.04 02/10/19 09:11 APTT 32.1 Seconds (26.9-38.3) 02/10/19 09:11 - Additional Findings Additional findings: - Constitutional Appears: No Acute Distress - Head Exam Head Exam: ATRAUMATIC, NORMAL INSPECTION, NORMOCEPHALIC - Eye Exam Eye Exam: EOMI, Normal appearance, PERRL. absent: Conjunctival injection, P eriorbital swelling, Scleral icterus - ENT Exam ENT Exam: Mucous Membranes Moist, Normal Oropharynx - Respiratory Exam Respiratory Exam: Clear to Auscultation Bilateral, NORMAL BREATHING PATTERN. absent: Chest Wall Tenderness, Decreased Breath Sounds, Rales, Rhonchi, Wheezes, Respiratory Distress - Cardiovascular Exam Cardiovascular Exam: REGULAR RHYTHM, +S1, +S2. absent: Bradycardia, Tachycardia, Diastolic murmur, Systolic Murmur - GI/Abdominal Exam GI & Abdominal Exam: Normal Bowel Sounds, Soft. absent: Diminished Bowel Sounds, Firm, Guarding, Hernia, Rigid, Tenderness - Extremities Exam Extremities exam: Positive for: full ROM, normal inspection. Negative for: calf tenderness, pedal edema, tenderness - Neurological Exam Neurological exam: Alert, CN II-XII Intact, Oriented x3, Reflexes Normal - Psychiatric Exam Psychiatric exam: Normal Affect, Normal Mood - Skin Skin Exam: Dry, Intact, Normal Color, Warm Assessment and Plan - Assessment and Plan (Free Text) Assessment: 69 yo male with PMH of CAD s/p triple bypass in 2002, HTN, prostate cancer, former smoker who is being evaluated to rule out ACS. Plan: Chest pain r/o ACS - EKG in ED was normal sinus, no ST changes - trop negative x3 - Echo in march 2018 showed EF of 36% with global hypokinesis - cardiac cath on 06/04/18 showed EF of 35-40%, with DESTINEY placed in the proximal cx - CTA negative for PE - F/U results of cardiac cath performed today, f/u further cardiac recs - continue home asa and brilinta - continue home statin therapy - continue home coreg and cindi inhibitor - Cardiology consult Dr Hwang for cardiology HTN - Resume home medications coreg and losartan - will continue to monitor GI ppx- Pepcid DV ppx- scds Patient seen, case reviewed and plan approved by Dr. Becerra. Farhan Lang PGY-1 <HernanTom - Last Filed: 02/12/19 14:28> Objective - Vital Signs/Intake and Output Vital Signs (last 24 hours): Temp Pulse Resp BP Pulse Ox 98.2 F 92 H 19 139/83 95 02/12/19 08:27 02/12/19 11:11 02/12/19 08:27 02/12/19 11:11 02/12/19 08:27 - Labs Labs: 02/12/19 06:20 02/12/19 06:20 PT 11.8 SECONDS (9.4-12.5) 02/10/19 09:11 INR 1.04 02/10/19 09:11 APTT 32.1 Seconds (26.9-38.3) 02/10/19 09:11 Attending/Attestation - Attestation I have personally seen and examined this patient.: Yes I have fully participated in the care of the patient.: Yes I have reviewed all pertinent clinical information, including history, physical exam and plan: Yes Notes (Text): 02/12/19 14:28 Medical record note made by the resident after discussion with my direction and input after the patient was personally seen and examined by me. I have reviewed the chart and agree that the record accurately reflects by personal performance of the history, physical exam, data review, and medical decision-making, in the course for the patient. I have also personally directed the plan of care.
--- NOTE | 2019-02-11 15:01 | CPOSTOP ---
DATE: 02/11/2019 CARDIOVASCULAR POST PROCEDURE NOTE PHYSICIAN: Dr. Tom Clemens. CATTLE STICKER: Cecilia heat transfer technician. TYPE OF SEDATION: Moderate conscious sedation. Total 2 mg of Versed, 100 mg of fentanyl given periodically, started 1 mg of Versed and 50 of fentanyl. PRE-PROCEDURE DIAGNOSES: Unstable angina and acute coronary syndrome. PROCEDURE PERFORMED: Left heart catheterization/GARZA to LAD/left radial to OM. FINDINGS: Mid LAD total occluded RCA totally occluded. FINAL DIAGNOSES: Multivessel coronary artery disease, ischemic cardiomyopathy. POST PROCEDURE CONDITION: The patient condition is stable. VASCULAR ACCESS SITE: Left femoral artery. CLOSURE DEVICE: Manual compression. TOTAL RADIATION DOSE: 03694 milligray unit. CUMULATIVE DOSE: 1380 milligray unit. TOTAL FLUORO TIME: 8.2 minutes. Tom Clemens MD
[2019-02-11 17:06] LABS: BASO # 0.03 K/mm3 (0.0-2.0); BASO % 0.2 % (0.0-3.0); EOS # 0.2 (0.0-0.7); EOS % 1.6 % (1.5-5.0); HEMOGLOBIN 12.9 g/dL (14.0-18.0); LYMPH # 2.2 (1.2-3.4); LYMPH % 16.2 % (22.0-35.0); MEAN CELL VOLUME 88.8 fl (80.0-105.0); MEAN CORPUSCULAR HEMOGLOBIN 28.4 pg (25.0-35.0); MONO # 0.8 (0.1-0.6); RBC 4.54 10^6/uL (3.5-6.1); RED CELL DISTRIBUTION WIDTH 14.5 % (11.5-14.5); WHITE BLOOD COUNT 13.5 10^3/uL (4.5-11.0)
[2019-02-11 17:25] LABS: BLOOD UREA NITROGEN 17 mg/dL (7-21); CALCIUM 8.6 mg/dL (8.4-10.5); GFR NON-AFRICAN AMERICAN > 60
--- NOTE | 2019-02-11 17:43 | CARD ---
APPROVED REPORT Date of service: 02/11/2019 Procedure(s) performed: Left Heart Catheterization SVG Angiogram SVG Angiogram HISTORY The patient is a 69 year-old male with a history of : previous W[place] (> 7 days), most recent EF: 39%. (EF Method: ), previous diagnostic cath, tobacco history() : The patient is a former smoker , previous PCI (The PCI date was 06/04/2018), hypertension , previous CABG (The CABG date was 10/30/2002), dyslipidemia , Admitted with ACS/ unstable angina. INDICATION The indication(s) include : unstable angina , chest pain, dyspnea. CASE TECHNIQUE The patient was brought urgently to the Cardiac Catheterization Laboratory in a fasting state and was prepped and draped in a sterile manner. The left femoral groin was infiltrated with 2% Lidocaine subcutaneous anesthesia. A 6 Fr x 11 cm Lurdes sheath was inserted into the left femoral artery without difficulty. Coronary angiography was performed using coronary diagnostic catheters. The left coronary system was accessed and visualized with a Diagnostic ,6F JL4 CATH DXT 100 CM catheter. The right coronary system was accessed and visualized with a Diagnostic ,6F JR 4 CATH DXT 100 CM catheter. The left ventricle was accessed and visualized with a 6F PIGTAIL 145 CATH DXT 110 CM catheter. The left internal mammary artery was accessed and visualized with a 6 Fr LIONEL catheter. The saphenous vein graft was accessed and visualized with a 6 Fr LIONEL catheter. The saphenous vein graft was accessed and visualized with a 6 Fr LIONEL catheter. Left ventricular/Aortic Valve gradient assessed on pullback. Left ventriculogram was performed in GASPAR projection. Closure device was deployed with a Fr without any complications. Hemostasis was obtained with manual pressure following sheath removal without any complications. The patient tolerated the procedure well and there were no complications associated with the procedure. Vessel Analysis The patient's coronary anatomy is right dominant. The left main coronary artery is a medium size vessel with diffuse calcification noted throughout this vessel and without significant stenosis. There is a 20% stenosis in the ostial segment. The left main bifurcates to the left anterior descending and circumflex. The left anterior descending artery is a medium size vessel with diffuse calcification noted throughout this vessel and without significant stenosis. There is a 80% stenosis in the mid segment. The first diagonal branch is a medium size vessel with diffuse calcification noted throughout this vessel and without significant stenosis. The circumflex artery is a medium size vessel with diffuse calcification noted throughout this vessel and without significant stenosis. patent stent in proximal cx The first obtuse marginal branch is a small size vessel with diffuse calcification noted throughout this vessel and without significant stenosis. The second obtuse marginal branch is a medium size vessel . There is a 100% stenosis in the ostial segment. The right coronary artery is a medium size vessel with diffuse calcification noted throughout this vessel and with significant stenosis. There is a 100% stenosis in the proximal segment. The left internal mammary artery to the mid left anterior descending artery segment is patent . The saphenous vein graft to the second obtuse marginal branch segment . The saphenous vein graft to the mid right coronary artery Occluded, since immediate post op, not canulated this time. . Left Ventricle The left ventricle is enlarged in size with Moderately decreased contractility. Ischemic cardiomyopathy. The left ventricular ejection fraction is estimated to be 35%. The left ventricular end diastolic pressure is 15 mmHg. There was no gradient across the aortic valve upon pullback. Conclusion [place] triple Vessel CAD Occluded SVG to RCA in the past ( just after CABG) Patent GARZA to LAD Patent Left radial to OM2 Patent Stent in proximal Cx ( placed in 06/04/2018) Ischemic CMP, EF-35%, EDP-15 mmof hg. Recommendations Aggressive Medical TherapyCardiac Risk Reduction Program Weight Loss Reduction Program Continue ASA and Brilanta ( resistance to Plavix) for a total one year from last PTCA Continue Lipitor 40 mg po daily and coreg DC ARB Add Lasix 40 mg po daily and spironolactone 25 mg po daily. Add digoxin 0.25 mg po daily. Add enteresto 24/26 one po Bid and titrare up as Bp is tolerated. Reassess LV Fx in 3-6 months to assess Need for AICD( If LVEF% remains less than 35%). CC; Tiffanie Garcia / Jaiden.
--- NOTE | 2019-02-12 02:37 | PN ---
DATE: 02/11/2019 REFERRING PHYSICIAN: . REASON FOR CONSULTATION: Followup, acute coronary syndrome, unstable angina. BRIEF HISTORY: This is a 69-year-old male with past medical history significant for coronary artery disease, status post PTCA, multiple and CABG and post-CABG, the patient had a PTCA, admitted with unstable angina. The patient underwent cardiac catheterization that revealed LAD occluded mid, patent stent in the circumflex, RCA occluded very proximally, SVG to RCA occluded in the previous cath, just after the CABG, GARZA patent to LAD, left radial artery to OM1 is patent, decreased LV function. RECOMMENDATIONS: We will start actually guideline and therapy including digoxin, Lasix 40 mg daily, spironolactone 25 mg daily, and continue carvedilol 25 mg p.o. b.i.d. The patient was resistant to Plavix in last catheterization. The patient is on Brilinta. Continue Brilinta twice 90 mg. Continue baby aspirin. We will add on Entresto one p.o. b.i.d. Continue atorvastatin. Continue Coreg. We will re-assess LV function in three to six months. If remains below 30, we will consider AICD. We will discontinue losartan and will start Entresto 48 hours after the washout. Tom Clemens MD
[2019-02-12 06:56] VITALS: O2SAT 95
[2019-02-12 07:12] LABS: BASO # 0.03 K/mm3 (0.0-2.0); BASO % 0.2 % (0.0-3.0); EOS # 0.2 (0.0-0.7); EOS % 1.8 % (1.5-5.0); HEMOGLOBIN 14.1 g/dL (14.0-18.0); LYMPH # 2.2 (1.2-3.4); LYMPH % 18.1 % (22.0-35.0); MEAN CELL VOLUME 88.3 fl (80.0-105.0); MEAN CORPUSCULAR HEMOGLOBIN 28.5 pg (25.0-35.0); MEAN CORPUSCULAR HGB CONC 32.3 g/dl (31.0-37.0); MEAN PLATELET VOLUME 10.7 fl (7.0-11.0); MONO # 1.1 (0.1-0.6); MONO % 9.2 % (1.0-6.0); RBC 4.95 10^6/uL (3.5-6.1); RED CELL DISTRIBUTION WIDTH 14.6 % (11.5-14.5); WHITE BLOOD COUNT 12.1 10^3/uL (4.5-11.0)
[2019-02-12 07:42] LABS: BLOOD UREA NITROGEN 19 mg/dL (7-21); CALCIUM 9.2 mg/dL (8.4-10.5); GFR NON-AFRICAN AMERICAN > 60
--- NOTE | 2019-02-12 07:55 | CP.PCM.PN ---
Subjective - Date & Time of Evaluation Date of Evaluation: 02/12/19 Time of Evaluation: 06:45 - Subjective Subjective: Awake, alert, denies chest pain Reason for consultation and follow up:Cardiac evaluation of chest pain, history of coronary artery disease, post CABG, post stents Seen and examined by me and Dr. Clemens Objective - Vital Signs/Intake and Output Vital Signs (last 24 hours): Temp Pulse Resp BP Pulse Ox 97.9 F 88 18 152/81 H 95 02/12/19 00:01 02/12/19 06:00 02/12/19 00:01 02/12/19 00:01 02/12/19 00:01 - Medications Medications: Current Medications Aspirin (Ecotrin) 81 mg PO DAILY [facility] Last Admin: 02/11/19 09:07 Dose: 81 mg Atorvastatin Calcium (Lipitor) 40 mg PO DIN [facility] Last Admin: 02/11/19 17:15 Dose: 40 mg Carvedilol (Coreg) 25 mg PO BID [facility] Last Admin: 02/11/19 17:15 Dose: 25 mg Digoxin (Lanoxin) 0.25 mg PO 1400 [facility] Famotidine (Pepcid) 20 mg PO 1000,2200 [facility] Last Admin: 02/11/19 22:26 Dose: 20 mg Furosemide (Lasix) 40 mg PO DAILY [facility] Sacubitril/Valsartan (Entresto 24 Mg-26 Mg Tablet) 1 each PO BID [facility] Spironolactone (Aldactone) 25 mg PO DAILY [facility] Ticagrelor (Brilinta) 90 mg PO BID [facility] Last Admin: 02/11/19 17:15 Dose: 90 mg - Labs Labs: 02/12/19 06:20 02/12/19 06:20 PT 11.8 SECONDS (9.4-12.5) 02/10/19 09:11 INR 1.04 02/10/19 09:11 APTT 32.1 Seconds (26.9-38.3) 02/10/19 09:11 - Constitutional Appears: Non-toxic, No Acute Distress - Head Exam Head Exam: NORMAL INSPECTION, NORMOCEPHALIC - Eye Exam Eye Exam: Normal appearance Pupil Exam: NORMAL ACCOMODATION - ENT Exam ENT Exam: Mucous Membranes Moist, Normal Exam - Neck Exam Neck Exam: Full ROM, Normal Inspection - Respiratory Exam Respiratory Exam: Decreased Breath Sounds, NORMAL BREATHING PATTERN - Cardiovascular Exam Cardiovascular Exam: +S1, +S2 - GI/Abdominal Exam GI & Abdominal Exam: Soft, Normal Bowel Sounds - Extremities Exam Extremities Exam: Full ROM, Normal Capillary Refill - Neurological Exam Neurological Exam: Alert, Awake, Oriented x3 - Psychiatric Exam Psychiatric exam: Normal Affect, Normal Mood - Skin Skin Exam: Dry, Normal Color, Warm Assessment and Plan - Assessment and Plan (Free Text) Assessment: A 69 year old male who came in to the ER due to chest pain associated with shortness of breath. History of coronary artery disease post CABG in 2002,post stents, hypertension, prostate cancer,former smoker. Had cardiac cath yesterday and showed [place] triple vessel disease, occluded SVG to RCA in the past (just after CABG), patent GARZA to LAD,patent left radial to OM2, patent stent in proximal Cx (placed 06/04/18) ischemic cardiomyopathy LVEF 35%. Resistant to Plavix, on Brilinta. Aggressive medical therapy. Follow up in 3-6 months and reevaluate LVEF is AICD warranted. Started on Entresto. Denies chest pain now. Will discontinue telemetry and may discharge patient from cardiac standpoint. Plan: Denies chest pain now Aggressive medical therapy Resistant to Plavix, on Brilinta for at least a year Follow up in 3-6 months and reevaluate LVEF is AICD warranted. Started on Entresto. Will discontinue telemetry May discharge patient from cardiac standpoint On ASA 81 mg daily,Lipitor 40 mg daily,Coreg 25 mg BID, Digoxin 0.25 mg daily, Lasix 40 mg daily,Entresto 1 tab BID,Aldactone 25 mg bid Brilinta 90 mg BID Continue current treatment Continue current medications Follow up in office 2-3 weeks Plan and treatment discussed with Dr. Clemens
[2019-02-12 08:28] VITALS: BP 139/83; PULSE 92; RESP 19; TEMP 98.2
--- NOTE | 2019-02-12 10:49 | CP.PCM.DIS ---
<Farhan Lang - Last Filed: 02/12/19 12:39> Provider - Provider Date of Admission: 02/10/19 10:51 Attending physician: Tmo Becerra MD Primary care physician: Dr. Kennedy Consults: 02/10/19 10:47 Cardiology Consult Routine Comment: Consulting Provider: Tom Hwang Consulting Physician: Tom Hwang Reason for Consult: angina Time Spent in preparation of Discharge (in minutes): 35 Hospital Course - Lab Results Lab Results: Most Recent Lab Values WBC 12.1 10^3/uL (4.5-11.0) H 02/12/19 06:20 RBC 4.95 10^6/uL (3.5-6.1) 02/12/19 06:20 Hgb 14.1 g/dL (14.0-18.0) 02/12/19 06:20 Hct 43.7 % (42.0-52.0) 02/12/19 06:20 MCV 88.3 fl (80.0-105.0) 02/12/19 06:20 MCH 28.5 pg (25.0-35.0) 02/12/19 06:20 MCHC 32.3 g/dl (31.0-37.0) 02/12/19 06:20 RDW 14.6 % (11.5-14.5) H 02/12/19 06:20 Plt Count 237 10^3/uL (120.0-450.0) 02/12/19 06:20 MPV 10.7 fl (7.0-11.0) 02/12/19 06:20 Neut % (Auto) 70.7 % (50.0-68.0) H 02/12/19 06:20 Lymph % (Auto) 18.1 % (22.0-35.0) L 02/12/19 06:20 [place] % (Auto) 9.2 % (1.0-6.0) H 02/12/19 06:20 Eos % (Auto) 1.8 % (1.5-5.0) 02/12/19 06:20 Baso % (Auto) 0.2 % (0.0-3.0) 02/12/19 06:20 Lymph # (Auto) 2.2 (1.2-3.4) 02/12/19 06:20 [place] # (Auto) 1.1 (0.1-0.6) H 02/12/19 06:20 Eos # (Auto) 0.2 (0.0-0.7) 02/12/19 06:20 Baso # (Auto) 0.03 K/mm3 (0.0-2.0) 02/12/19 06:20 Absolute Neuts (auto) 8.52 (1.4-6.5) H 02/12/19 06:20 PT 11.8 SECONDS (9.4-12.5) 02/10/19 09:11 INR 1.04 02/10/19 09:11 APTT 32.1 Seconds (26.9-38.3) 02/10/19 09:11 D-Dimer, Quantitative 216 ng/mlDDU (0-243) 02/10/19 09:11 Sodium 138 mmol/L (132-148) 02/12/19 06:20 Potassium 4.4 mmol/L (3.6-5.0) 02/12/19 06:20 Chloride 105 mmol/L (98-107) 02/12/19 06:20 Carbon Dioxide 26 mmol/L (21-33) 02/12/19 06:20 Anion Gap 12 (10-20) 02/12/19 06:20 BUN 19 mg/dL (7-21) 02/12/19 06:20 Creatinine 0.9 mg/dl (0.8-1.5) 02/12/19 06:20 Est GFR ( Amer) > 60 02/12/19 06:20 Est GFR (Non-Af Amer) > 60 02/12/19 06:20 POC Glucose (mg/dL) 132 mg/dL (65-110) H 02/11/19 23:00 Random Glucose 91 mg/dL (70-110) 02/12/19 06:20 Calcium 9.2 mg/dL (8.4-10.5) 02/12/19 06:20 Phosphorus 3.5 mg/dL (2.5-4.5) 02/11/19 06:30 Magnesium 2.1 mg/dL (1.7-2.2) 02/11/19 06:30 Total Bilirubin 0.3 mg/dL (0.2-1.3) 02/11/19 06:30 AST 28 U/L (17-59) 02/11/19 06:30 ALT 19 U/L (7-56) 02/11/19 06:30 Alkaline Phosphatase 97 U/L (38-126) 02/11/19 06:30 Troponin I < 0.01 ng/mL 02/10/19 20:55 NT-Pro-B Natriuret Pep 219 pg/mL (0-450) 02/10/19 09:11 Total Protein 7.1 g/dL (5.8-8.3) 02/11/19 06:30 Albumin 3.8 g/dL (3.0-4.8) 02/11/19 06:30 Globulin 3.3 gm/dL 02/11/19 06:30 Albumin/Globulin Ratio 1.2 (1.1-1.8) 02/11/19 06:30 Triglycerides 103 mg/dL (35-160) 02/10/19 15:00 Cholesterol 145 mg/dL (130-200) 02/10/19 15:00 LDL Cholesterol Direct 81 mg/dL (0-129) 02/10/19 15:00 HDL Cholesterol 45 mg/dL (29-60) 02/10/19 15:00 TSH 3rd Generation 1.00 mIU/mL (0.46-4.68) 02/10/19 15:00 - Hospital Course Hospital Course: Farhan Lang, PGY-1 Discharge Summary for Hospitalist Service 69 year old male with past medical history of CAD s/p CABG, hypertension and prior smoking history presented with complaint of chest pain. Patient was admitted to telemetry unit. EKG on admission revealed sinus tachycardia. CXR showed cardiomegaly and CT chest study revealed no pulmonary embolus but did show a small granuloma in the R lung apex with pleual thickening and parenchymal scarring. Serial cardiac enzymes were ordered to rule out ACS and were negative x3. Cardiology evaluation by Dr. Hwang was requested. Patient was made NPO after midnight in advance of cardiac catheterization. Cath showed [place] triple vessel CAD, patent past stents and ischemic cardiomyopathy with EF of 35%. Patient was monitored overnight, during which time patient had one hypotensive episode that resolved spontaneously. Groin dressings were clear dry and intact and no hematoma was noted. Peripheral pulses were intact. BP was followed and remained in normal range. Patient tolerated diet and was able to ambulate without issue. Patient reports symptoms have resolved. Patient was provided all medications at bedside with following instructions: Please take all Medications including: - Aspirin, Brillinta, Lipitor, Coreg, Lasix, Spironolactone, Digoxin, Entresto Please start Entresto on 02/13. Please stop taking your home valsartan. Please follow up with PCP Dr. Kennedy within 3-[address] scan in 3 months is recommended to assess stability of R apical lung granuloma and exclude the possibility of underlying aggressive lesion. Please speak with Dr. Kennedy about proper follow up. Please follow up with Dr. Clemens in 2-3 weeks for followup. Please call to make an appointment. Further followup is very important. Please document your daily weight and follow a low sodium (2 gm) diet. Should symptoms worsen or reoccur, please visit nearest emergency department. Patient was in agreement with instructions and understood need to follow up. Patient was educated regarding medication compliance and the need to avoid tobacco. For full details of hospital course, please see EMR. Patient seen, case reviewed and plan approved by Dr. Becerra. Discharge Exam - Additional Findings Additional findings: - Constitutional Appears: No Acute Distress - Head Exam Head Exam: ATRAUMATIC, NORMAL INSPECTION, NORMOCEPHALIC - Eye Exam Eye Exam: EOMI, Normal appearance, PERRL. absent: Conjunctival injection, Periorbital swelling, Scleral icterus - ENT Exam ENT Exam: Mucous Membranes Moist, Normal Oropharynx - Respiratory Exam Respiratory Exam: Clear to Auscultation Bilateral, NORMAL BREATHING PATTERN. absent: Chest Wall Tenderness, Decreased Breath Sounds, Rales, Rhonchi, Wheezes, Respiratory Distress - Cardiovascular Exam Cardiovascular Exam: REGULAR RHYTHM, +S1, +S2. absent: Bradycardia, Tachycardia, Diastolic murmur, Systolic Murmur - GI/Abdominal Exam GI & Abdominal Exam: Normal Bowel Sounds, Soft. absent: Diminished Bowel Sounds, Firm, Guarding, Hernia, Rigid, Tenderness - Extremities Exam Extremities exam: Positive for: full ROM, normal inspection. Negative for: calf tenderness, pedal edema, tenderness - Neurological Exam Neurological exam: Alert, CN II-XII Intact, Oriented x3, Reflexes Normal - Psychiatric Exam Psychiatric exam: Normal Affect, Normal Mood - Skin Skin Exam: Dry, Intact, Normal Color, Warm Discharge Plan - Follow Up Plan Condition: STABLE Disposition: HOME/ ROUTINE Instructions: Chest Pain (DC) Additional Instructions: You have been provided all medications at bedside. Please make sure to take them as prescribed. Medications include: - Aspirin, Brillinta, Lipitor, Coreg, Lasix, Spironolactone, Digoxin, Entresto Please start Entresto on 02/13. Please stop taking your home valsartan. Please follow up with PCP Dr. Kennedy within 3-[address] scan in 3 months is recommended to assess stability of R apical lung granuloma and exclude the possibility of underlying aggressive lesion. Please speak with Dr. Kennedy about proper follow up. Please follow up with Dr. Clemens in 2-3 weeks for followup. Please call [phone] to make an appointment. Further followup is very important. Please document your daily weight and follow a low sodium (2 gm) diet. Should symptoms worsen or reoccur, please visit nearest emergency department. Referrals: Morales Kennedy MD [Family Provider] - Tom Hwang MD [Staff Provider] - <Tom Becerra - Last Filed: 02/12/19 14:26> Provider - Provider Date of Admission: 02/10/19 10:51 Attending physician: Tom Becerra MD Consults: 02/10/19 10:47 Cardiology Consult Routine Comment: Consulting Provider: Tom Hwang Consulting Physician: Tom Hwang Reason for Consult: angina Hospital Course - Lab Results Lab Results: Most Recent Lab Values WBC 12.1 10^3/uL (4.5-11.0) H 02/12/19 06:20 RBC 4.95 10^6/uL (3.5-6.1) 02/12/19 06:20 Hgb 14.1 g/dL (14.0-18.0) 02/12/19 06:20 Hct 43.7 % (42.0-52.0) 02/12/19 06:20 MCV 88.3 fl (80.0-105.0) 02/12/19 06:20 MCH 28.5 pg (25.0-35.0) 02/12/19 06:20 MCHC 32.3 g/dl (31.0-37.0) 02/12/19 06:20 RDW 14.6 % (11.5-14.5) H 02/12/19 06:20 Plt Count 237 10^3/uL (120.0-450.0) 02/12/19 06:20 MPV 10.7 fl (7.0-11.0) 02/12/19 06:20 Neut % (Auto) 70.7 % (50.0-68.0) H 02/12/19 06:20 Lymph % (Auto) 18.1 % (22.0-35.0) L 02/12/19 06:20 [place] % (Auto) 9.2 % (1.0-6.0) H 02/12/19 06:20 Eos % (Auto) 1.8 % (1.5-5.0) 02/12/19 06:20 Baso % (Auto) 0.2 % (0.0-3.0) 02/12/19 06:20 Lymph # (Auto) 2.2 (1.2-3.4) 02/12/19 06:20 [place] # (Auto) 1.1 (0.1-0.6) H 02/12/19 06:20 Eos # (Auto) 0.2 (0.0-0.7) 02/12/19 06:20 Baso # (Auto) 0.03 K/mm3 (0.0-2.0) 02/12/19 06:20 Absolute Neuts (auto) 8.52 (1.4-6.5) H 02/12/19 06:20 PT 11.8 SECONDS (9.4-12.5) 02/10/19 09:11 INR 1.04 02/10/19 09:11 APTT 32.1 Seconds (26.9-38.3) 02/10/19 09:11 D-Dimer, Quantitative 216 ng/mlDDU (0-243) 02/10/19 09:11 Sodium 138 mmol/L (132-148) 02/12/19 06:20 Potassium 4.4 mmol/L (3.6-5.0) 02/12/19 06:20 Chloride 105 mmol/L (98-107) 02/12/19 06:20 Carbon Dioxide 26 mmol/L (21-33) 02/12/19 06:20 Anion Gap 12 (10-20) 02/12/19 06:20 BUN 19 mg/dL (7-21) 02/12/19 06:20 Creatinine 0.9 mg/dl (0.8-1.5) 02/12/19 06:20 Est GFR ( Amer) > 60 02/12/19 06:20 Est GFR (Non-Af Amer) > 60 02/12/19 06:20 POC Glucose (mg/dL) 132 mg/dL (65-110) H 02/11/19 23:00 Random Glucose 91 mg/dL (70-110) 02/12/19 06:20 Calcium 9.2 mg/dL (8.4-10.5) 02/12/19 06:20 Phosphorus 3.5 mg/dL (2.5-4.5) 02/11/19 06:30 Magnesium 2.1 mg/dL (1.7-2.2) 02/11/19 06:30 Total Bilirubin 0.3 mg/dL (0.2-1.3) 02/11/19 06:30 AST 28 U/L (17-59) 02/11/19 06:30 ALT 19 U/L (7-56) 02/11/19 06:30 Alkaline Phosphatase 97 U/L (38-126) 02/11/19 06:30 Troponin I < 0.01 ng/mL 02/10/19 20:55 NT-Pro-B Natriuret Pep 219 pg/mL (0-450) 02/10/19 09:11 Total Protein 7.1 g/dL (5.8-8.3) 02/11/19 06:30 Albumin 3.8 g/dL (3.0-4.8) 02/11/19 06:30 Globulin 3.3 gm/dL 02/11/19 06:30 Albumin/Globulin Ratio 1.2 (1.1-1.8) 02/11/19 06:30 Triglycerides 103 mg/dL (35-160) 02/10/19 15:00 Cholesterol 145 mg/dL (130-200) 02/10/19 15:00 LDL Cholesterol Direct 81 mg/dL (0-129) 02/10/19 15:00 HDL Cholesterol 45 mg/dL (29-60) 02/10/19 15:00 TSH 3rd Generation 1.00 mIU/mL (0.46-4.68) 02/10/19 15:00 Attending/Attestation - Attestation I have personally seen and examined this patient.: Yes I have fully participated in the care of the patient.: Yes I have reviewed all pertinent clinical information, including history, physical exam and plan: Yes Notes (Text): 02/12/19 14:25 Medical record note made by the resident after discussion with my direction and input after the patient was personally seen and examined by me. I have reviewed the chart and agree that the record accurately reflects by personal performance of the history, physical exam, data review, and medical decision-making, in the course for the patient. I have also personally directed the plan of care. 69 year old male with past medical history of CAD s/p CABG, hypertension and prior smoking history presents with complaint of chest pain. Patient was admitted to telemetry, serial troponins were normal. Patient was evaluated by Cardiology and underwent cardiac catherization that showed [place] triple vessel disease, occluded SVG to RCA in the past (just after CABG), patent GARZA to LAD, patent left radial to OM2, patent stent in proximal Circumflex (placed 06/04/18). Ischemic cardiomyopathy LVEF 35%. Resistant to Plavix, on Brilinta. Aggressive medical therapy. Follow up in 3-6 months and reevaluate LVEF is AICD warranted. Started on Entresto. Patient is feeling better today, Denies chest pain now. He is euvolemic. He will be discharged home and will follow up PCP and cardiology. Management plan was discussed in detail with patient. Education was provided.
[2019-02-12] MEDS ORDERED: Digoxin 250 mcg (0.25 mg) Tab PO SCH (14:00)
[2019-02-13] MEDS ORDERED: SACUBITRIL 24mg/VALSARTAN 26mg tab PO SCH (10:00)
== END 2019-02-12 13:13 | disposition home or self-care (01) ==
LOC: ED 08:40 → ERH 10:51 → INTOOBSV 10:51 → ERH 11:15 → 3RNO 12:13 → 2RSO 02-11 14:27 → 3RNO 02-11 23:50
PROVIDERS: ADMIT Hospitalist; ATTEND Internal Medicine
DX: I25.110 Atherosclerotic heart disease of native coronary artery with unstable angina pectoris (principal); I25.810 Atherosclerosis of coronary artery bypass graft(s) without angina pectoris; I25.5 Ischemic cardiomyopathy; E11.9 Type 2 diabetes mellitus without complications; Z85.46 Personal history of malignant neoplasm of prostate; E78.5 Hyperlipidemia, unspecified; I10 Essential (primary) hypertension; J84.10 Pulmonary fibrosis, unspecified; I25.2 Old myocardial infarction; I34.0 Nonrheumatic mitral (valve) insufficiency; Z79.02 Long term (current) use of antithrombotics/antiplatelets; Z79.82 Long term (current) use of aspirin; Z87.891 Personal history of nicotine dependence; Z95.5 Presence of coronary angioplasty implant and graft
CPT/HCPCS: 36415; 71045; 71275; 80048; 80053; 80061; 82948; 83735; 83880; 84100; 84443; 84484; 85025; 85378; 85610; 85730; 93005; 93459; 96374; 99152; 99153; 99285; C1769; C2629; G0378; J1644; J1940; J2250; J3010; J7030; Q9966; Q9967